=== PATIENT | female | born 1945 | race Caucasian/White ===

== ENCOUNTER 2024-11-16 15:17 | Emergency (ER) | payer MEDICARE, SELFPAY ==
[2024-11-16] VITALS (7 sets, daily range): BP systolic 114–150; BP diastolic 65–94; PULSE 78–98; RESP 12–20; TEMP 37.1; O2SAT 95–96; BMI 28.3
--- NOTE | 2024-11-16 15:22 | ECG_ITS ---
APPROVED REPORT Exam: Resting ECG HR:91 bpm ECG Measurements Heart Rate 91 AXES FL 156 P 52 QRSd 78 QRS 11 QT 370 T 115 QTc [address] and T wave changes Electronically signed by : POONAM MUNIZ, 11/16/2024 22:52:35
--- NOTE | 2024-11-16 15:35 | CT_ITS ---
PROCEDURE INFORMATION: Exam: CT Head Without Contrast Exam date and time: 11/16/2024 3:47 PM Age: 79 years old Clinical indication: Injury or trauma; Additional info: Fall, head trauma frontal TECHNIQUE: Imaging protocol: Computed tomography of the head without contrast. Radiation optimization: All CT scans at this facility use at least one of these dose optimization techniques: automated exposure control; mA and/or kV adjustment per patient size (includes targeted exams where dose is matched to clinical indication); or iterative reconstruction. COMPARISON: CT HEAD/BRAIN WO CON 11/16/2024 3:47 PM FINDINGS: Brain: There is moderate atrophy and extensive symmetric chronic white matter microangiopathic changes which could reflect chronic hypertension. Cerebral ventricles: There is compensatory ventricular dilation. Paranasal sinuses: There is dependent fluid in the non dominant left sphenoid sinus without expansile or destructive features. Mastoid air cells: Visualized mastoid air cells are well aerated. Bones: There is bilateral thinning of the parietal bones, an age-related osteoporotic process. There is no evidence of an acute fracture. Soft tissues: No scalp injury is identified.There is no evidence of a radio-opaque foreign body. Vasculature: The vasculature demonstrates diffuse moderate atherosclerotic calcification. IMPRESSION: 1. There is moderate atrophy and extensive symmetric chronic white matter microangiopathic changes which could reflect chronic hypertension. 2. There is bilateral thinning of the parietal bones, an age-related osteoporotic process. 3. There is dependent fluid in the non dominant left sphenoid sinus without expansile or destructive features. 4. There is no evidence of an acute fracture. 5. No scalp injury is identified.There is no evidence of a radio-opaque foreign body. 6. No acute intracranial process is identified.
--- NOTE | 2024-11-16 15:35 | CT_ITS ---
PROCEDURE INFORMATION: Exam: CT Cervical Spine Without Contrast Exam date and time: 11/16/2024 3:49 PM Age: 79 years old Clinical indication: Injury or trauma; Additional info: Fall, extension injury TECHNIQUE: Imaging protocol: Computed tomography of the cervical spine without contrast. Radiation optimization: All CT scans at this facility use at least one of these dose optimization techniques: automated exposure control; mA and/or kV adjustment per patient size (includes targeted exams where dose is matched to clinical indication); or iterative reconstruction. COMPARISON: CT HEAD/BRAIN WO CON 11/16/2024 3:47 PM FINDINGS: Bones: There is a flattening of the normal lordosis, related to positioning or spasm. The spine demonstrates mild degenerative changes at multiple levels. There is no evidence of an acute fracture. Lungs: The visualized portions of the lung apices are normal. Thyroid: The thyroid appears normal. Vasculature: The vasculature demonstrates diffuse mild atherosclerotic calcification. Soft tissues: Unremarkable. IMPRESSION: 1. There is a flattening of the normal lordosis, related to positioning or spasm. 2. There is no evidence of an acute fracture.
--- NOTE | 2024-11-16 15:35 | XR_ITS ---
PROCEDURE INFORMATION: Exam: XR Chest Exam date and time: 11/16/2024 3:57 PM Age: 79 years old Clinical indication: Other: Palpitations, syncope TECHNIQUE: Imaging protocol: Radiologic exam of the chest. Views: 1 view. COMPARISON: CT ANGIO CHEST PE PROTOCOL 11/16/2024 3:54 PM FINDINGS: Lungs: Unremarkable. No consolidation. Pleural spaces: Unremarkable. No pleural effusion. No pneumothorax. Heart/Mediastinum: Unremarkable. No cardiomegaly. Bones/joints: Unremarkable. IMPRESSION: No acute findings.
--- NOTE | 2024-11-16 15:36 | CT_ITS ---
PROCEDURE INFORMATION: Exam: CTA Chest With Contrast Exam date and time: 11/16/2024 3:54 PM Age: 79 years old Clinical indication: Injury or trauma; Additional info: Syncope, palpitations TECHNIQUE: Imaging protocol: Computed tomographic angiography of the chest with contrast. Exam focused on the arteries. 3D rendering (Not supervised by radiologist): MIP and/or 3D reconstructed images were created by the technologist. Radiation optimization: All CT scans at this facility use at least one of these dose optimization techniques: automated exposure control; mA and/or kV adjustment per patient size (includes targeted exams where dose is matched to clinical indication); or iterative reconstruction. Contrast material: ISO 370; Contrast volume: 70 ml; Contrast route: INTRAVENOUS (IV); COMPARISON: CT ANGIO NECK 11/16/2024 3:51 PM FINDINGS: Pulmonary arteries: No CTA evidence of pulmonary embolus. Aorta: Unremarkable. No aortic aneurysm. No aortic dissection. Lungs: Unremarkable. No consolidation. No masses. Pleural spaces: Unremarkable. No pneumothorax. No pleural effusion. Heart: Unremarkable. No cardiomegaly. No pericardial effusion. Lymph nodes: Unremarkable. No enlarged lymph nodes. Gallbladder and biliary ducts: Cholelithiasis. Bones/joints: Unremarkable. No acute fracture. Soft tissues: Unremarkable. IMPRESSION: 1. No CTA evidence of pulmonary embolus. 2. Cholelithiasis.
--- NOTE | 2024-11-16 15:36 | CT_ITS ---
PROCEDURE INFORMATION: Exam: CTA Neck With Contrast Exam date and time: 11/16/2024 3:51 PM Age: 79 years old Clinical indication: Injury or trauma; Additional info: Syncope, palpitations, confusion TECHNIQUE: Imaging protocol: Computed tomographic angiography of the neck with contrast. Exam focused on the cervical segments of the vasculature. 3D rendering (Not supervised by radiologist): MIP and/or 3D reconstructed images were created by the technologist. Radiation optimization: All CT scans at this facility use at least one of these dose optimization techniques: automated exposure control; mA and/or kV adjustment per patient size (includes targeted exams where dose is matched to clinical indication); or iterative reconstruction. Contrast material: ISO 370; Contrast volume: 80 ml; Contrast route: INTRAVENOUS (IV); COMPARISON: CT CERVICAL SPINE WO CON 11/16/2024 3:49 PM FINDINGS: Right common carotid artery: No stenosis. No dissection or occlusion. Right internal carotid artery: There is moderate calcification of the right internal carotid origin with less than 50% compromise of the lumen. Right external carotid artery: No occlusion or stenosis of the origin. Left common carotid artery: No stenosis. No dissection or occlusion. Left internal carotid artery: There is mild calcification of the left internal carotid origin with less than 50% compromise of the lumen. Left external carotid artery: No occlusion or stenosis of the origin. Right vertebral artery: There is a non dominant right vertebral artery with no evidence of dissection or stenosis. Left vertebral artery: There is a dominant left vertebral artery with no evidence of dissection or stenosis. 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 Thyroid: The thyroid appears normal. Teeth: The patient is edentulous. Soft tissues: Normal. No significant soft tissue swelling. Bones/joints: See Aorta finding. Lungs: The visualized portions of the lung apices are normal. IMPRESSION: 1. 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 2. There is moderate calcification of the right internal carotid origin with less than 50% compromise of the lumen. 3. There is mild calcification of the left internal carotid origin with less than 50% compromise of the lumen. 4. There is a dominant left vertebral artery with no evidence of dissection or stenosis. 5. There is a non dominant right vertebral artery with no evidence of dissection or stenosis. REFERENCES: NASCET CRITERIA. The degree of stenosis in the cervical segment of the internal carotid artery is based on NASCET criteria. Normal is no stenosis. Mild is less than 50% stenosis. Moderate is 50-69% stenosis. Severe is 70% to 99% stenosis. Total occlusion is no detectable patent lumen.
--- NOTE | 2024-11-16 15:36 | CT_ITS ---
PROCEDURE INFORMATION: Exam: CTA Head With Contrast, Arteriography Exam date and time: 11/16/2024 3:51 PM Age: 79 years old Clinical indication: Injury or trauma; Additional info: Syncope, palpitations, confusion TECHNIQUE: Imaging protocol: Computed tomographic angiography of the head with contrast. Exam focused on the arteries. 3D rendering (Not supervised by radiologist): MIP and/or 3D reconstructed images were created by the technologist. Radiation optimization: All CT scans at this facility use at least one of these dose optimization techniques: automated exposure control; mA and/or kV adjustment per patient size (includes targeted exams where dose is matched to clinical indication); or iterative reconstruction. Contrast material: ISO 370; Contrast volume: 80 ml; Contrast route: INTRAVENOUS (IV); COMPARISON: CT HEAD/BRAIN WO CON 11/16/2024 3:47 PM FINDINGS: ANTERIOR CIRCULATION: Right internal carotid artery: Intracranial segment is patent with no significant stenosis. No aneurysm. Right middle cerebral artery: No occlusion or significant stenosis. No aneurysm. Right anterior cerebral artery: No occlusion or significant stenosis. No aneurysm. Left internal carotid artery: Intracranial segment is patent with no significant stenosis. No aneurysm. Left middle cerebral artery: No occlusion or significant stenosis. No aneurysm. Left anterior cerebral artery: No occlusion or significant stenosis. No aneurysm. POSTERIOR CIRCULATION: Right vertebral artery: No occlusion or significant stenosis. No aneurysm. Left vertebral artery: No occlusion or significant stenosis. No aneurysm. Basilar artery: No occlusion or significant stenosis. No aneurysm. Right posterior cerebral artery: No occlusion or significant stenosis. No aneurysm. Left posterior cerebral artery: No occlusion or significant stenosis. No aneurysm. Brain: There is no evidence of intracranial large vessel stenosis or occlusion. Cerebral ventricles: No ventriculomegaly. Bones/joints: Unremarkable. No acute fracture. Soft tissues: Unremarkable. IMPRESSION: There is no evidence of intracranial large vessel stenosis or occlusion.
--- NOTE | 2024-11-16 15:46 | HMH.EDGENADL ---
Discharge Plan Disposition Patient Disposition: Home, Self-Care Chief Complaint: Fall Prescriptions Prescriptions: No Action fluoxetine 40 mg Capsule 40 mg PO DAILY atorvastatin 40 mg Tablet 40 mg PO HS lisinopril 20 mg Tablet 20 mg PO DAILY levothyroxine 50 mcg Tablet 50 mcg PO DAILY folic acid 1 mg Tablet 1 mg PO DAILY ergocalciferol (vitamin D2) [Vitamin D2] 1,250 mcg (50,000 unit) Capsule 1,250 mcg PO WEEKLY topiramate 50 mg Tablet 50 mg PO BID omeprazole 20 mg Tablet,Delayed Release (Dr/Ec) 20 mg PO DAILY Referrals Follow up/Referrals: Jazmin Garcia APRN [Primary Care Provider] - See instructions Activity Restrictions/Add. Instructions Additional Instructions/Restrictions: Call your family doctor to establish care for this visit to the emergency department and schedule follow-up within 48 hours to ensure improvement. If you have any worsening of your condition or any other concerning signs or symptoms, return to the emergency department or your primary care doctor for further evaluation. Call cardiology on Monday, 11/18 to schedule close follow-up and let them know you are in the emergency department and need to be followed up for multiple passing out episodes. Clinical Impressions Clinical Impression: Syncope Print Language Print Language: Spanish Discharge ED Provider: Geraldo Falk General Adult HPI General Chief complaint: Fall Stated complaint: fall; CP Time Seen by Provider: 11/16/24 15:17 Mode of Arrival: EMS Source of Information: Patient and EMS Description of Symptoms (Recalled from ER Triage Doc. by RN): Pt reports has been having chest pain for a few days that is intermittent in nature, reports it is on the L side of her chest. Pt reports she has fallen twice today, pt reports she would get dizzy and the next thing she knew she would be on her butt . Pt reports she does not remember actively falling. Pt has bruising to forehead. History of Present Illness HPI narrative: Please note that above description of symptoms, in this electronic medical record under categorization of recalled from ER triage doctor by RN are reflective of an initial nursing assessment, however, is not reflective of my full history and physical exam that was personally taken and clarified. Consequentially, this preceding description of symptoms, which may include the patient's categorized chief complaint in the EMR, do not reflect my personal clinical impression, and the ultimate description of history of present illness and patient stated complaints should be deferred to this section of the note. Unless stated otherwise or congruent with this section of the note, additional signs, symptoms, or incongruence should be interpreted as inaccurate with my clinical impression. Related Data Home Medications ?Medication ?Instructions ?Recorded ?Confirmed atorvastatin 40 mg tablet 40 mg PO HS 11/16/24 11/16/24 ergocalciferol (vitamin D2) 1,250 1,250 mcg PO WEEKLY 11/16/24 11/16/24 mcg (50,000 unit) capsule (Vitamin D2) fluoxetine 40 mg capsule 40 mg PO DAILY 11/16/24 11/16/24 folic acid 1 mg tablet 1 mg PO DAILY 11/16/24 11/16/24 levothyroxine 50 mcg tablet 50 mcg PO DAILY 11/16/24 11/16/24 lisinopril 20 mg tablet 20 mg PO DAILY 11/16/24 11/16/24 omeprazole 20 mg tablet,delayed 20 mg PO DAILY 11/16/24 11/16/24 release topiramate 50 mg tablet 50 mg PO BID 11/16/24 11/16/24 Allergies Allergy/AdvReac Type Severity Reaction Status Date / Time Penicillins Allergy Verified 11/16/24 15:27 [facility] Disclaimer: The information contained in this section may have been updated after the patient was seen, as this information can be updated by other users. Medical History (Updated 11/16/24 @ 17:14 by Geraldo Falk MD) Hypothyroid Social History Smoking Status: Never smoker alcohol intake: never current occupational status: retired Travel in the last 8 weeks?: None ROS Obtained: Yes All systems reviewed & no additional complaints except as documented Physical Exam General General appearance: alert Head Head exam: normocephalic and other (Bruising about patient's frontal scalp. No other trauma about the head.) Eye Eye exam: Present PERRL, EOMI and periorbital swelling (On the right, but EOMs intact. No evidence of hyphema, proptosis, entrapment, conjunctival hemorrhage, pupillary changes, cellulitic change, obvious foreign body, or otherwise irregular ocular findings. ) ENT ENT exam: Present TM's normal bilaterally Neck Neck exam: Present full ROM, trachea midline and tenderness (Midline, placed in cervical collar out of abundance of caution) Respiratory Respiratory exam: Present normal lung sounds bilaterally; Absent respiratory distress, wheezes, stridor, accessory muscle use or prolonged expiratory phase Cardiovascular Cardiovascular exam: Present regular rate, normal rhythm, normal heart sounds and other (Pulses equal symmetric in upper and lower extremities) Abdominal Exam Abdominal exam: Present soft; Absent distention, tenderness or pulsatile mass Extremities Exam Extremities exam: Present other (Superficial bruising overlying left knee, but structurally intact and minimally tender) Neurological Exam Neurological exam: Present alert, oriented X3 and CN II-XII intact; Absent motor sensory deficit Skin Skin exam: Present warm and dry; Absent diaphoresis or erythema Medical Decision Making Medical Records Medical records reviewed: Yes I reviewed the patient's medical records. Screening: Per USPSTF and CDC recommendations, given the prevalence of disease in our region, it is our hospital?s policy to screen for HIV and viral Hepatitis for all patients aged 18 and over and those with ongoing risk factors. Galileo Inquiry Pt receiving controlled substance: No Galileo was queried for this patient: No Vital Signs: 11/16/24 15:18 11/16/24 15:30 11/16/24 15:34 Temperature 98.8 F Temperature Source Oral Pulse Rate 98 H 85 Pulse Rate [Apical] 89 Respiratory Rate 16 Blood Pressure 150/76 H 134/81 Blood Pressure [Right Arm] 150/76 H Blood Pressure Mean [Right Arm] 100 Blood Pressure Source [Right Arm] Automatic Cuff Blood Pressure Position [Right Arm] Sitting 02 Sat by Pulse Oximetry 95 96 96 Oxygen Delivery Method Room Air Room Air Room Air 11/16/24 16:00 11/16/24 16:30 11/16/24 17:00 Temperature Temperature Source Pulse Rate 82 80 78 Pulse Rate [Apical] Respiratory Rate 20 12 14 Blood Pressure 114/94 H 115/65 115/73 Blood Pressure [Right Arm] Blood Pressure Mean [Right Arm] Blood Pressure Source [Right Arm] Blood Pressure Position [Right Arm] 02 Sat by Pulse Oximetry 96 96 95 Oxygen Delivery Method Room Air Room Air Room Air Lab Data Lab Results 11/16/24 15:29: WBC 12.4 H, RBC 4.27, Hgb 13.3, Hct 39.7, MCV 93.0, MCH 31.1, MCHC 33.5, RDW 12.5, Plt Count 293, MPV 10.9 H, Neut % (Auto) 72.3, Lymph % (Auto) 20.7, Kimball % (Auto) 5.6, Eos % (Auto) 0.5, Baso % (Auto) 0.3, Neut # (Auto) 9.0 H, Lymph # (Auto) 2.6, Kimball # (Auto) 0.7, Eos # (Auto) 0.1, Baso # (Auto) 0.0, PT 11.4, INR 1.02, APTT 23.9, Sodium 135 L, Potassium 3.2 L, Chloride 106, Carbon Dioxide 23, Anion Gap 9.2, BUN 10, Creatinine 1.10 H, Estimated Creat Clear 43, Estimated GFR 48 L, Est GFR ( Amer) 58 L, Glucose 109 H, Calcium 8.6, Magnesium 4.3 H, Total Bilirubin 0.4, AST 18, ALT 13, Alkaline Phosphatase 101, Troponin I < 0.01, NT-Pro-B Natriuret Pep 233, Total Protein 6.1 L, Albumin 3.7, Globulin 2.4, Albumin/Globulin Ratio 1.5, Triglycerides 244 H, Cholesterol 115 L, LDL Cholesterol Direct 42.91 L, VLDL Cholesterol 49 H, HDL Cholesterol 48, Cholesterol/HDL Ratio 2.4, Thyroxine (T4) 9.5 11/16/24 15:29 11/16/24 15:29 Orders (Tests/Meds): ED MEDICATIONS Discontinued Medications Generic Name Dose Route Start Last Admin Trade Name Walterq PRN Reason Stop Dose Admin Lactated Ringer's 1,000 mls @ 999 mls/hr 11/16/24 15:34 11/16/24 16:02 Lactated Ringer's 1000 Ml Bag IV 11/16/24 16:34 999 mls/hr .Q1H1M ONE Administration Magnesium Sulfate 2 gm in 50 mls @ 50 mls/hr 11/16/24 15:34 11/16/24 16:02 Magnesium Sulfate 2gm/50ml Premix IV 11/16/24 16:33 50 mls/hr ONCE ONE Administration Iopamidol 150 ml 11/16/24 15:50 11/16/24 15:51 Iopamidol-370 (76%);100ml Bottle IV 11/16/24 15:51 150 ml ONCE ONE Administration Sodium Chloride 50 ml 11/16/24 15:50 11/16/24 15:51 0.9 % Sodium Chloride 50 Ml Vial IV 11/16/24 15:51 50 ml ONCE ONE Administration Sodium Chloride 10 ml 11/16/24 15:50 11/16/24 15:51 Sodium Chloride 0.9% 10ml Syr (Rad Only) IV 11/16/24 15:51 10 ml ONCE ONE Administration ORDERS Category Date Time Status CT angio chest PE protocol Stat Cat Scan 11/16/24 15:[address] angio head Stat Cat Scan 11/16/24 15:[address] angio neck Stat Cat Scan 11/16/24 15:[address] cervical spine wo con Stat Cat Scan 11/16/24 15:[address] head/brain wo con Stat Cat Scan 11/16/24 15:35 Completed XR chest portable Stat Exams 11/16/24 15:35 Completed Complete Blood Count Auto Diff Stat Lab 11/16/24 15:29 Completed Comprehensive Metabolic Panel Stat Lab 11/16/24 15:29 Results Drug Screen,Urine Stat Lab 11/16/24 15:37 Ordered Lipid Panel Stat Lab 11/16/24 15:29 Completed Magnesium Stat Lab 11/16/24 15:29 Completed NT Pro Brain Natriuretic Pep. Stat Lab 11/16/24 15:29 Completed PT INR [Prothrombin Time INR] Stat Lab 11/16/24 15:29 Completed PTT [Activated Partial Thrombo Time] Stat Lab 11/16/24 15:29 Completed T4 (Thyroxine) Stat Lab 11/16/24 15:29 Results TSH [Thyroid Stimulating Hormone] Stat Lab 11/16/24 15:29 Results Troponin I Q3H Lab 11/16/24 18:45 Ordered Troponin I Q3H Lab 11/16/24 21:45 Ordered Troponin I Stat Lab 11/16/24 15:29 Results Urinalysis and Microscopic Stat Lab 11/16/24 15:37 Ordered Holter Monitor Req by Michaela/ Stat Y 11/16/24 17:05 Ordered HEART Score History (anamnesis): Slightly suspicious ECG: Non-specific disturbance Age: >65 years Risk factors: 1-2 risk factors Troponin: </= normal limit HEART Score: 4 Medical Decision Narrative: This is a 79-year-old female presenting with multiple falls. She is a history of hypertension hyperlipidemia, hypothyroidism, GERD. States that she has had multiple episodes of syncope over the past couple of weeks to months. They are becoming more frequent. She states that they are not related to changes in position as of today. She states that she was just standing up not doing anything in particular and all of a sudden I woke up on my back. She does not remember the fall, but she remembers impact and immediately wakes up afterward. Able to stand up, ambulate without issue. Today, fell forward and hit her head twice on 2 separate occasions. She is having forehead pain, neck pain, but no other significant amounts of pain. She does have mild left knee pain, but states that it is not injured she is able to walk on it without issue. Has not taken anything for the pain. Came in with EMS for further evaluation. History was obtained via conversation with patient and EMS. On arrival, patient hemodynamically stable, alert, [oriented x4, ] appropriate, GCS 15, moving all extremities spontaneously, pupils equal and reactive to light. Full physical exam performed and significant for well-appearing female no acute distress. She does have bruising about her frontal scalp. No evidence of basilar depressed skull fracture. Midline cervical spinal tenderness, but range of motion is intact. Patient was placed in c-collar out of abundance of caution prior to imaging. No trauma about the upper extremities, chest, abdomen and pelvis. She does have tenderness and with superficial bruising overlying the left patella, but range of motion structurally intact, neurovascularly intact. Cardiac exam with no murmurs gallops or rubs, she is not tachycardic, but she does have ectopic beats that are obvious. No lower extremity edema. Differential includes malignant arrhythmia, dissection, cervical versus intracranial vascular stenosis, metabolic abnormality, endocrinologic abnormality, ACS, SC, PE, vasovagal, orthostatic, among others. Patient placed on continuous cardiac monitoring and continuous pulse ox with initial blood pressure 150/76, heart rate 89, saturation 96% on room air. Independent interpretation of EKG shows sinus rhythm with trigeminy. Ventricular rate 91, WV 156, QRS 78, QTc 419. Normal axis no acute ischemic change. Patient was given fluids, magnesium for symptomatic management and correction of underlying abnormalities. Workup independently interpreted and significant for nonactionable hematologic labs other than mild VANDANA with creatinine 1.1 and potassium a little low at 3.2, both of these were repleted with IV fluids as well as p.o. potassium. Patient also given 2 g of magnesium IV with resolution of PVCs on the monitor. On independent interpretation of imaging, no acute intracranial hemorrhage. No cervical spine injury. No evidence of acute vascular abnormality about the chest, neck, or head. See radiology read for full review of final results. Heart score 4 On reevaluation, patient resting comfortably, mobilizing appropriately, tolerating p.o. intake, voiding spontaneously, ready to go home. Given patient presentation, workup, history, this most likely represents syncopal episodes, PVCs and trigeminy. Attempted to have monitor worker placed, but hospital is out of Holter monitors. This was discussed with patient. Patient still wants to go home and follow-up outpatient with cardiology. I feel this is appropriate. Given this, likely related to patient's PVCs versus arrhythmia versus orthostatic/vasovagal syncope. Difficult to discern from patient's history and workup being negative. Because patient at baseline without signs or symptoms of clinical decompensation, deemed appropriate for discharge. Results were relayed to patient who voiced understanding and were agreeable to outpatient management and follow up. I discussed my clinical impression with patient and answered all questions. At this time, the evidence for any other entities in the differential is insufficient to warrant any further testing or ED observation. This was explained as well. Advisory was given that persistent or worsening symptoms require further evaluation. I confirmed the understanding of this discussion. Eating Disorder Specialist disclaimer Much of this encounter note is an electronic professional skater spoken language to printed text. Electronic professional skater of the spoken language may permit errors. Although I have reviewed the note, some errors may still exist. Critical Care Critical Care Time Critical Care Time: No
[2024-11-16 15:48] LABS: Basophils % 0.3 % (0.1-2.0); Eosinophils # 0.1 Kmm3 (0.0-0.4); Eosinophils % 0.5 % (0.1-12.0); Hematocrit 39.7 % (37.0-47.0); Hemoglobin 13.3 g/dL (12.2-16.2); Immature Granulocytes # 0.07 10^3uL; Immature Granulocytes % 0.6 %; Lymphocytes # 2.6 K/mm3 (0.7-4.5); Lymphocytes % 20.7 % (10-50); Mean Corpuscular HGB Conc 33.5 g/dL (31.8-35.4); Mean Corpuscular Hemoglobin 31.1 pg (27.0-31.2); Mean Platelet Volume 10.9 fl (7.4-10.4); Monocytes # 0.7 K/mm3 (0.1-1.0); Monocytes % 5.6 % (1.7-9.3); Neutrophils % 72.3 % (37.0-80.0); Nucleated Red Blood Cells # 0 10^3/uL; Nucleated Red Blood Cells % 0 %; Platelet Count 293 K/mm3 (142-424); Red Blood Count 4.27 M/mm3 (4.20-5.40); Red Cell Distribution Width 12.5 % (11.5-17.5); Red Cell Distribution Width-SD 42.7 fL; White Blood Count 12.4 K/mm3 (4.8-10.8)
[2024-11-16] MEDS: SODIUM CHLORIDE 0.9% 10ML SYR (RAD ONLY) 10 ML IV (15:51)
[2024-11-16] MEDS: IOPAMIDOL-370 (76%);100ML BOTTLE 150 ML IV (15:51)
[2024-11-16] MEDS: 0.9 % SODIUM CHLORIDE 50 ML VIAL IV (15:51)
[2024-11-16] MEDS: LACTATED RINGERS 1000ML 1,000 ML 999 ML IV (16:02)
[2024-11-16] MEDS: MAGNESIUM SULFATE IN WATER 2 GM/50 ML PIGGYBACK IV (16:02)
[2024-11-16 16:30] LABS: Chol/HDL Ratio 2.4 (1-3.5); Cholesterol 115 mg/dl (140-200); HDL Cholesterol 48 mg/dl (40-60); Magnesium 4.3 mg/dl (1.6-2.3); Triglycerides 244 mg/dl (30-150); VLDL Cholesterol 49 mg/dL (0-40)
[2024-11-16 16:34] LABS: INR 1.02 (0.9-1.1); Prothrombin Time 11.4 seconds (10.1-12.5)
--- NOTE | 2024-11-16 16:38 | PC.NURSE ---
Jaciel stated that she couldnt pee right now but asked if i could come back in 10 minutes.
[2024-11-16 16:40] LABS: Direct LDL Cholesterol 42.91 mg/dL (100-129); NT Pro Brain Natriuretic Pep. 233 pg/mL (0-450)
[2024-11-16 16:41] LABS: Activated Partial Thrombo Time 23.9 seconds (22.8-30.6)
[2024-11-16 16:47] LABS: Alanine Aminotransferase 13 U/L (12-78); Alkaline Phosphatase 101 U/L (38-126); Aspartate Amino Transferase 18 U/L (14-36); Bilirubin,Total 0.4 mg/dl (0.2-1.3); Calcium 8.6 mg/dl (8.4-10.2); Chloride 106 mmol/L (98-107); Glucose 109 mg/dl (74-100); Potassium 3.2 mmoL/L (3.5-5.1); Sodium 135 mmol/L (136-145)
[2024-11-16 16:48] LABS: Albumin Level 3.7 g/dl (3.5-5.0); Albumin/Globulin Ratio 1.5 (1.1-1.8); Anion Gap 9.2 mEq/L (5-15); Blood Urea Nitrogen 10 mg/dl (7-17); Carbon Dioxide 23 mmol/L (22.0-30.0); Creatinine Clearance Estimated 43 mL/min (50-200); Estimated Glomerular Filt Rate 48 ml/min (>60); GFR (African American) 58 ML/MIN (>60); Globulin 2.4 g/dL (1.3-3.2); Total Protein,Serum 6.1 g/dl (6.3-8.2)
--- NOTE | 2024-11-16 16:56 | PC.NURSE ---
Dr. Falk reviewed pts ct scans and has removed pts c-collar
[2024-11-16 17:03] LABS: Troponin I < 0.01 ng/ml (0.00-0.034)
[2024-11-16 17:04] LABS: T4 (Thyroxine) 9.5 ug/dl (5.53-11.0)
--- NOTE | 2024-11-16 17:06 | PC.NURSE ---
MARIA LUISA RAMEY CALLED RESPIRATORY FOR A HALTER MONITOR PLACED ON PT FOR 48HOURS AND RESPIRATORY STATES WE DON'T HAVE ANY AT THIS TIME, THERE WAS SOME DUE TO BE RETURNED SOON
[2024-11-16] MEDS: POTASSIUM CHLORIDE 20MEQ TAB 60 MEQ PO (17:17)
[2024-11-16 17:18] LABS: Thyroid Stimulating Hormone 2.14 uIU/mL (0.465-4.68)
== END 2024-11-16 17:35 | disposition home or self-care (01) ==
PROVIDERS: Emergency Provider Emergency Medicine; PCP Nurse Practitioner
DX: R07.89 Other chest pain (principal); I49.3 Ventricular premature depolarization; R55 Syncope and collapse; E87.6 Hypokalemia; S00.83XA Contusion of other part of head, initial encounter; W19.XXXA Unspecified fall, initial encounter
CPT/HCPCS: 70450; 70496; 70498; 71045; 71275; 72125; 80053; 80061; 83735; 83880; 84436; 84443; 84484; 85025; 85610; 85730; 93005; 96365; 99285; J3475; J7120; Q9967

== ENCOUNTER 2024-11-19 10:53 | Outpatient (CLI) | payer MEDICARE, SELFPAY | END 2024-11-19 23:59 | disposition home or self-care (01) | LOC: RT 10:55 | PROVIDERS: PCP Nurse Practitioner; Visit Provider Emergency Medicine | DX: I49.1 Atrial premature depolarization (principal); I49.3 Ventricular premature depolarization; R55 Syncope and collapse; R29.6 Repeated falls | CPT/HCPCS: 93225; 93227 ==